=== PATIENT | male | born 1945 | race Caucasian/White ===

== ENCOUNTER → 2016-09-11 | Outpatient (CLI) | payer OTHER ==
[~2016-09-11] VITALS: Ht 170.2 cm; Wt 82.6 kg
[~2016-09-11] MED LIST: AMARYL2 MG PO; COZAAR 50 MG TA50 M2 PO; JARDIANCE10 MG PO; LEVOTHYROXIN0.125 M1 PO; LOPRESSOR25 PO; METFORMIN HCL500 MG PO; PLAVIX 75 MG TA75 M1 PO; PRILOSEC 20 MG20 MG PO; UNICOMPLEX M TA1 TA1 PO; VITAMIN B COMP1 EAC7 PO; VYTORIN 10-801 EACH PO
--- NOTE | ~2016-09-11 | EKG ---
[place] [address] [facility] [address] [place] [address] ELECTROCARDIOGRAM REPORT Name: LEMONSMARYCHUY WAYNE Room #: REG CLI OlvinDiogenes#: [id number] Admission: 09/11/16 Attend Phys: Frank Leon MD, FA Discharge: Date of : 43 Report #: [id number] THIS REPORT FOR: //name// [facility] Test Date: 2016-09-11 Test Time: 07:02:43 Pat Name: MARYCHUY LEMONS Department: Room: Gender: Medical Doctor Nuclear Medicine: Jacinto QUIGLEY : 1945 Requested By: Frank Leon Order Number: [id number] MD: Piotr Hau Measurements Intervals [place] Rate: 65 P: 60 NM: 205 QRS: 27 QRSD: 98 T: 17 QT: 414 QTc: 431 Interpretive Statements Sinus rhythm Abnormal R-wave progression, early transition No previous ECG available for comparison Electronically Signed On 09-11-2016 8:59:08 CDT by Piotr Hua [email or web address] <ELECTRONICALLY SIGNED> By: Piotr Hua MD, [facility] 09/11/16 0859 0702 1 Piotr Hua MD, FACC /EPI
--- NOTE | ~2016-09-11 | CATHLAB ---
[facility] [address] [place] [address] INVASIVE PROCEDURE REPORT Name: SERGIO LEMONSEZEQUIEL WAYNE Room #: REG DANELLE Escoto#: [id number] Admission: 09/11/16 Attend Phys: Frank Leon MD Discharge: Date of : 43 Date of Service: 09/11/16 1417 Report #: [id number] THIS REPORT FOR: //name// APPROVED REPORT Patient Details Patient Status: Out-Patient Room #: The patient is a 71 year-old male Procedures Performed left heart cath Indication Atypical chest pain Risk Factors Coronary Artery Disease Previous Procedures/Diagnoses Previous PCI Admission/Lab Medications/Medications given during procedure Aspirin, Beta Arthur Procedure Narrative The patient was brought electively to the Cardiac Catheterization Laboratory and was prepped and draped in a sterile manner. The right wrist was infiltrated with 1% Lidocaine subcutaneous anesthesia. A 6 pitcairn islander sheath was inserted into the right radial artery. Coronary angiography was performed using coronary diagnostic catheters. The right coronary system was accessed and visualized with a Diagnostic catheter. The left coronary system was accessed and visualized with a Diagnostic catheter. The left ventricle was accessed and visualized with a Diagnostic catheter. Left ventricular/Aortic Valve gradient assessed via catheter pullback. Left ventriculogram was performed in BA[place]A projection. The patient tolerated the procedure well and there were no complications associated with the procedure. There was no hematoma. Intraoperative Conscious Sedation Sedation start time: 8:03 Case end Time: 8:49 Fentanyl 50 mcg Versed 1 mg Coronary Angiography [facility] [address] [place] [address] INVASIVE PROCEDURE REPORT Name: MARYCHUY LEMONS [place] Room #: REG Olvin.#: [id number] Admission: 09/11/16 Attend Phys: Frank Leon MD Discharge: Date of : 43 Date of Service: 09/11/16 1417 Report #: [id number] The patient's coronary anatomy is right dominant. [place] Artery Percent Stenosis Left Main: 30 % Prox LAD: % Mid/Distal LAD: 60 % Circumflex: 0 % RCA: 100 % Ramus: % Diagnostic Findings The left main artery had a 30% ostial stenosis as well as a distal 30% stenosis. The left anterior descending artery was noted to give off a medium-sized first diagonal branch. There is then a long metal stent in the mid left anterior descending artery that had a proximal 60% restenosis as well as a distal 50% restenosis. CIrcumflex artery was a nondominant vessel and gave off a large marginal branch had no significant atherosclerosis. The right coronary artery was the dominant vessel. There is a metal stent in the proximal right coronary had no significant restenosis. However the right coronary artery appeared chronically occluded at the acute margin of the vessel. There was normal left ventricular chamber size. There is severe hypokinesis noted at the base of the inferior wall with an estimated ejection fraction of 45%. Left Ventriculography Ejection Fraction was 45% based off patient's . There is no mitral insufficiency. Hemodynamics The aortic pressure is 116-56-87 mmHg with a mean of mmHg. The left ventricular pressure is 122-10-19 mmHg with a mean of mmHg. The left ventricular end diastolic pressure is 25 mmHg. There was no gradient across the aortic valve upon pullback. Pullback from the left ventricle to the aorta revealed no gradient across the aortic valve. Conclusion #1 normal left ventricular chamber size with severe hypokinesis noted the basal inferior wall and estimated ejection fraction 45%. #2 coronary artery disease manifested by a long metal stent in the mid left anterior descending artery had a proximal 60% restenosis as well as a distal 50% restenosis. #3 there is a stent in the proximal right coronary artery had no significant restenosis. However the right coronary artery appeared be chronically occluded at the acute margin of the vessel. [facility] [address] [place] [address] INVASIVE PROCEDURE REPORT Name: MARYCHUY LEMONS Room #: REG CL OlvinDiogenes#: [id number] Admission: 09/11/16 Attend Phys: Frank Leon MD Discharge: Date of : 43 Date of Service: 09/11/161416 Report #: [id number] Recommendations Aggressive Medical Therapy <ELECTRONICALLY SIGNED> By: Frank Leon MD, [facility] 09/11/161416 16 16 Frank Leon MD, FACC /INF
[2016-09-11 07:18] LABS: HEMATOCRIT 40.4 % (42.0-52.0); HEMOGLOBIN 13.7 gm/dL (14.0-18.0); MCH 29.8 pg (26.0-34.0); MCV 87.6 fL (80.0-100.0); RBC 4.6 mil/uL (4.50-6.00); RDW 13.8 % (10.5-14.5); WBC 9.3 thou/uL (4.0-11.0)
[2016-09-11 07:19] VITALS: BP 125/78
[2016-09-11 07:30] LABS: ANION GAP 9 mmol/L (7-16); BUN 25 mg/dL (7-18); CALCIUM 9.5 mg/dL (8.5-10.1); CHLORIDE 103 mmol/L (98-107); CO2 24 mmol/L (21-32); CREATININE 1.4 mg/dL (0.7-1.3); GLUCOSE 150 mg/dL (74-106); POTASSIUM 4.2 mmol/L (3.5-5.1); SODIUM 136 mmol/L (136-145)
[2016-09-11 07:35] LABS: CHOLESTEROL 127 mg/dL (<200); HDL CHOLESTEROL 40 mg/dL (>40); LDL CHOLESTEROL 72 mg/dL (<100); TC:HDL 3.2 Ratio (Not establshd); TRIGLYCERIDE 77 mg/dL (<150); VLDL 15 mg/dL (<40)
== END | disposition home or self-care (01) ==
LOC: CATH 06:32
PROVIDERS: Internal Medicine Cardiovascular Disease
DX: I25.10 Atherosclerotic heart disease of native coronary artery without angina pectoris (principal); I10 Essential (primary) hypertension; E78.5 Hyperlipidemia, unspecified; I25.2 Old myocardial infarction; I50.9 Heart failure, unspecified; E11.9 Type 2 diabetes mellitus without complications; Z95.5 Presence of coronary angioplasty implant and graft; Z98.890 Other specified postprocedural states; Z87.891 Personal history of nicotine dependence; Z82.49 Family history of ischemic heart disease and other diseases of the circulatory system

== ENCOUNTER → 2016-10-12 | Outpatient (CLI) | payer OTHER | LOC: RAD 08:36 | DX: M47.896 Other spondylosis, lumbar region (principal); M41.86 Other forms of scoliosis, lumbar region ==

== ENCOUNTER → 2019-07-21 | Outpatient (CLI) | payer OTHER ==
--- NOTE | 2019-07-23 13:01 | SLE ---
[facility] [place] [address] POLYSOMNOGRAPHY STUDY Name: MARYCHUY LEMONS Room #: REG CHANTAL BahDiogenes#: [id number] Admission: 07/21/19 Attend Phys: Colette Harkins MD Discharge: Date of : 43 Report #: [id number] THIS REPORT FOR: //name// CC: Colette Castillo DATE OF SERVICE: 07/21/2019 SLEEP STUDY REFERRING PHYSICIAN: Dr. Teddy Castillo. The patient is 73 years old who weighs 180 pounds with a BMI of 27.4. The patient's Buffalo score was 13. The patient underwent diagnostic sleep study performed at [facility]. During the night study, the patient spent 432 minutes in bed and slept for 400 minutes with a sleep efficiency of 93%. Sleep latency was 8.3 minutes with a REM latency of 56.5 minutes. Sleep architecture showed increased stage 1 and stage 2 sleep, absent slow wave and normal REM sleep. During the night study, the patient had 35 obstructive apneas, no mixed apneas and 5 central apneas and 45 hypopneas. The patient's AHI was 12 per hour with a REM AHI of 0.8 per hour and a supine AHI of 37 per hour. EKG monitoring revealed an average heart rate of 75 beats per minute. No sustained arrhythmias observed. PLMS were seen at an index of 35 per hour and 3 per hour caused EEG arousals. Nocturnal oximetry study revealed an average oxygen saturation of 94% with the lowest of 87%. Less than 1 minute were spent in oxygen saturation of less than 89%. Due to low AHI, the patient did not meet the split night criteria for CPAP initiation. IMPRESSION: 1. Mild obstructive sleep apnea with worsening during supine sleep. Total AHI of 12 per hour with a supine AHI of 37 per hour. 2. No clinically significant nocturnal hypoxia. 3. Moderate periodic limb movements. RECOMMENDATIONS: 1. The patient is clinically symptomatic with an Buffalo score of 13. The patient would benefit from treatment of sleep apnea with either CPAP versus oral [facility] [address] [place] [address] POLYSOMNOGRAPHY STUDY Name: MARYCHUY LEMONS [place] Room #: REG [facility] Olvin.#: [id number] Admission: 07/21/19 Attend Phys: Colette Harkins MD Discharge: Date of : 43 Report #: [id number] appliance. 2. Once the patient is optimally treated, then follow up in 4-6 weeks to assess compliance with treatment and to document clinical improvement. 3. Avoid supine sleep. 4. Cautioned regarding driving until the patient's hypersomnia is resolved with above recommendations. 5. Weight loss to the ideal body weight is recommended. 6. Avoid CREW LEADER/CONTROL ROOM OPERATOR depressants. <ELECTRONICALLY SIGNED> By: Leonardo Saenz MD 07/23/19 1301 1920 26 Leonardo Saenz MD /nt
== END ==
LOC: SLEEPLAB 12:55
DX: G47.33 Obstructive sleep apnea (adult) (pediatric) (principal); R25.8 Other abnormal involuntary movements

== ENCOUNTER → 2019-10-19 | Outpatient (CLI) | payer OTHER | LOC: CAT 10:49 | PROVIDERS: ATTEND Internal Medicine | DX: Z12.2 Encounter for screening for malignant neoplasm of respiratory organs (principal); I25.10 Atherosclerotic heart disease of native coronary artery without angina pectoris; J84.10 Pulmonary fibrosis, unspecified; Z87.891 Personal history of nicotine dependence ==

== ENCOUNTER 2020-01-20 19:04 | Emergency (ER) | payer OTHER ==
[~2020-01-20] VITALS: Ht 172.7 cm; Wt 81.7 kg
[2020-01-20 20:12] LABS: BASOPHILS 0.8 % (0.0-2.0); EOSINOPHILS 2.4 % (0.0-3.0); HEMATOCRIT 43.5 % (42.0-52.0); HEMOGLOBIN 14.7 gm/dL (14.0-18.0); LYMPHOCYTES 27.1 % (24.0-44.0); MCH 30.3 pg (26.0-34.0); MCHC 33.9 g/dL (28.0-37.0); MCV 89.6 fL (80.0-100.0); MONOCYTES 10.7 % (1.0-8.0); PLATELET COUNT 288 thou/uL (150-400); RBC 4.86 mil/uL (4.50-6.00); RDW 14.3 % (10.5-14.5); WBC 6.8 thou/uL (4.0-11.0)
[2020-01-20 20:17] LABS: ANION GAP 15 mmol/L (7-16); BUN 26 mg/dL (7-18); CALCIUM 9.7 mg/dL (8.5-10.1); CHLORIDE 98 mmol/L (98-107); CO2 22 mmol/L (21-32); CREATININE 1.6 mg/dL (0.7-1.3); GLUCOSE 248 mg/dL (74-106); POTASSIUM 4.6 mmol/L (3.5-5.1); SODIUM 135 mmol/L (136-145)
[2020-01-20] MEDS ORDERED: B 12 PO (20:18)
[2020-01-20] MEDS ORDERED: LANTUS SUBQ (20:19)
[2020-01-20] MEDS ORDERED: TRULICITY SUBQ (20:20)
[2020-01-20 20:27] LABS: ALBUMIN 3.9 g/dL (3.4-5.0); SGOT 21 U/L (15-37); SGPT 43 U/L (30-65); TOTAL BILIRUBIN 0.3 mg/dL (0.2-1.0); TOTAL PROTEIN 7.5 g/dL (6.4-8.2); TROPONIN-I <0.06 ng/mL (<0.06)
[2020-01-20] MEDS ORDERED: PROAIR HFA8.5 GM INH ×2 (21:18→21:19)
[2020-01-20] MEDS ORDERED: ZPAK PO ×2 (21:18→21:19)
[2020-01-20 21:25] VITALS: BP 121/67
--- NOTE | 2020-01-21 07:55 | EKG ---
[facility] [place] [address] [place] [address] ELECTROCARDIOGRAM REPORT Name: SERGIO LEMONSBUR BLOMKEST Room #: DEP [facility].#: [id number] Admission: 01/20/20 Attend Phys: Discharge: 01/20/20 Date of : 43 Report #: [id number] THIS REPORT FOR: cc: Teddy Castillo MD, Rene P. MD Santiago, Patrick MD [facility] ~ THIS REPORT FOR: //name// [facility] ED Test Date: 2020-01-20 Test Time: 19:11:46 Pat Name: MARYCHUY LEMONS Department: Room: Gender: Race Relations Adviser: [facility] : 1945 Requested By: Tae Rader Order Number: [id number] MD: Tre Gay Measurements Intervals [place] Rate: 97 P: 73 NE: 191 QRS: 41 QRSD: 98 T: 50 QT: 338 QTc: 430 Interpretive Statements Sinus rhythm Inferior infarct, old Compared to ECG 09/11/2016 07:02:43 Myocardial infarct finding now present Electronically Signed On 01-21-2020 7:55:07 CDT by Tre Gay [email or web address] <ELECTRONICALLY SIGNED> By: Tre Gay MD, FACC 01/21/20 0755 10 10 Tre Gay MD, FAC /EPI
== END 2020-01-20 21:38 | disposition home or self-care (01) ==
LOC: ER 19:04
PROVIDERS: Physician Assistant
DX: U07.1 COVID-19 (principal); R53.83 Other fatigue; R05 Cough; I10 Essential (primary) hypertension; E11.9 Type 2 diabetes mellitus without complications; I25.10 Atherosclerotic heart disease of native coronary artery without angina pectoris; Z79.4 Long term (current) use of insulin; Z79.01 Long term (current) use of anticoagulants; Z79.899 Other long term (current) drug therapy

== ENCOUNTER 2020-01-23 16:37 | Inpatient (IN) | payer OTHER ==
[~2020-01-23] VITALS: Ht 180.3 cm; Wt 81.6 kg
[~2020-01-23 16:37] MED LIST changes: +B 12 PO; +LANTUS SUBQ; +PROAIR HFA8.5 GM INH; +TRULICITY SUBQ; +ZPAK PO
[2020-01-23 16:38] VITALS: BP 137/64
[2020-01-23 17:29] LABS: HEMATOCRIT 40.2 % (42.0-52.0); HEMOGLOBIN 13.5 gm/dL (14.0-18.0); MCH 29.9 pg (26.0-34.0); MCHC 33.6 g/dL (28.0-37.0); MCV 89.1 fL (80.0-100.0); PLATELET COUNT 257 thou/uL (150-400); RBC 4.52 mil/uL (4.50-6.00); RDW 13.9 % (10.5-14.5); WBC 4.9 thou/uL (4.0-11.0)
[2020-01-23 17:35] LABS: ANION GAP 14 mmol/L (7-16); BUN 20 mg/dL (7-18); CALCIUM 8.7 mg/dL (8.5-10.1); CHLORIDE 99 mmol/L (98-107); CO2 23 mmol/L (21-32); CREATININE 1.6 mg/dL (0.7-1.3); GLUCOSE 320 mg/dL (74-106); POTASSIUM 4.7 mmol/L (3.5-5.1); SODIUM 136 mmol/L (136-145)
[2020-01-23 17:45] LABS: ALBUMIN 3.7 g/dL (3.4-5.0); DIRECT BILIRUBIN 0.1 mg/dL (<0.1-0.2); SGOT 21 U/L (15-37); SGPT 30 U/L (30-65); TOTAL BILIRUBIN 0.3 mg/dL (0.2-1.0); TOTAL PROTEIN 7.4 g/dL (6.4-8.2); TROPONIN-I <0.06 ng/mL (<0.06)
[2020-01-23 18:13] LABS: ABSOLUTE NEUTROPHILS 3.4 thou/uL (1.4-8.2); ATYPICAL LYMPHS 3 %
--- NOTE | 2020-01-23 23:02 | EKG ---
[facility] [address] [place] [facility] [place] [address] ELECTROCARDIOGRAM REPORT Name: MARYCHUY LEMONS [place] Room #: 170-6 ADM IN M.R.#: [id number] Admission: 01/23/20 Attend Phys: Elina Wilder MD Discharge: Date of : 43 Report #: [id number] THIS REPORT FOR: cc: Teddy Castillo MD, Rene P. MD Lundgren,Piotr De Leon MD [facility] ~ THIS REPORT FOR: //name// [facility] ED Test Date: 2020-01-23 Test Time: 17:12:15 Pat Name: MARYCHUY LEMONS Department: Room: 170 Gender: M Fleet Manager: PABLO : 1945 Requested By: Jas Willard Order Number: [id number] MD: Piotr Hua Measurements Intervals [place] Rate: 116 P: 45 NC: 185 QRS: 17 QRSD: 95 T: 15 QT: 307 QTc: 427 Interpretive Statements Sinus tachycardia Inferior infarct, old Compared to ECG 01/20/2020 19:11:46 No significant change was found Electronically Signed On 01-23-2020 23:02:01 CDT by Piotr Hua [email or web address] <ELECTRONICALLY SIGNED> By: Piotr Hua MD, FACC 01/23/20 2302 11 11 Piotr Hua MD, [facility] /EPI
[2020-01-23 23:21] VITALS: BP 136/57
[2020-01-23 23:38] VITALS: BP 128/79
[2020-01-24 00:15] VITALS: BP 108/55
[2020-01-24 00:58] LABS: BE(vivo) -6.2 mmol/L (-2 to +3); PCO2 31.7 mmHg (35.0-45.0); PO2 78.2 mmHg (80.0-100.0); pH 7.372 (7.360-7.450); sO2 95.4 % (92.0-98.0)
[2020-01-24 04:29] LABS: ABSOLUTE NEUTROPHILS 3.5 thou/uL (1.4-8.2); BASOPHILS 0.3 % (0.0-2.0); HEMATOCRIT 39.4 % (42.0-52.0); HEMOGLOBIN 13.1 gm/dL (14.0-18.0); LYMPHOCYTES 13.4 % (24.0-44.0); MCH 29.8 pg (26.0-34.0); MCHC 33.3 g/dL (28.0-37.0); MCV 89.4 fL (80.0-100.0); MONOCYTES 2.7 % (1.0-8.0); PLATELET COUNT 239 thou/uL (150-400); POLYS 83.6 % (36.0-66.0); WBC 4.2 thou/uL (4.0-11.0)
[2020-01-24 04:34] LABS: ALBUMIN 3.4 g/dL (3.4-5.0); ANION GAP 14 mmol/L (7-16); BUN 25 mg/dL (7-18); CALCIUM 8.6 mg/dL (8.5-10.1); CHLORIDE 102 mmol/L (98-107); CO2 20 mmol/L (21-32); CREATININE 1.5 mg/dL (0.7-1.3); GLUCOSE 398 mg/dL (74-106); MAGNESIUM 2.1 mg/dL (1.8-2.4); PHOSPHORUS 2.8 mg/dL (2.5-4.9); POTASSIUM 5.4 mmol/L (3.5-5.1); SGOT 18 U/L (15-37); SGPT 36 U/L (30-65); SODIUM 136 mmol/L (136-145); TOTAL BILIRUBIN 0.3 mg/dL (0.2-1.0); TROPONIN-I <0.06 ng/mL (<0.06)
[2020-01-24 07:41] VITALS: BP 122/54
--- NOTE | 2020-01-24 07:50 | NUR ---
ADMIT PT ADMITTED TO ROOM 350 VIA ED FOR R/O COVID, R/O GIB. PT HAS A HX OF RETENTION AND VOIDED AND BLADDERSCANNED THAT REVEALED 402 CC'S LEFT IN BLADDER STRAIGHT CATH WITH RETURN OF 420 CC'S SPECIMEN SENT TO LAB ORDERED, IVF'S INITIATED IV ANTIBIOTICS ADMINISTERED ORDERED. PT TAKEN TO CAT SCAN AND ALL LABS DRAWN ORDERED. PT UP WITH SBA [facility] [place]. PT CONCERNED ABOUT S.O WHO IS IN ROOM 356 TOLD HE CAN'T WALK AROUND THE UNIT.
[2020-01-24 11:10] VITALS: BP 116/59
[2020-01-24 16:39] VITALS: BP 116/50
--- NOTE | 2020-01-24 18:36 | NUR ---
PATIENT HAS RESTED IN ROOM THROUGH THE DAY. RESPIRATIONS ARE EVEN NON LABORED. PLEASAN WITH CARES. STARTED ON REMDESIVIR TODAY. UP AD [place] IN ROOM. WILL LIKE TO VISIT GF IN ANOTHER ROOM BUT UNDESTANDS HE CANNOT LEAVE HIS ROOM TO ROAM ABOUT. WILL CONT WITH PLAN OF CARE.
[2020-01-24 19:36] VITALS: BP 119/54
--- NOTE | 2020-01-24 19:47 | NUR ---
accucheck meter read over 500 stat bmp entered per protocol.
[2020-01-24 20:52] LABS: CALCIUM 8.6 mg/dL (8.5-10.1); CREATININE 1.9 mg/dL (0.7-1.3)
[2020-01-24 20:54] LABS: POTASSIUM 3.9 mmol/L (3.5-5.1)
[2020-01-24 21:43] LABS: URINE BILIRUBIN NEGATIVE (Negative); URINE BLOOD NEGATIVE (Negative); URINE CLARITY CLEAR; URINE COLOR YELLOW; URINE GLUCOSE-RANDOM* 3+ (Negative); URINE KETONES 1+ (Negative); URINE LEUKOCYTES-REFLEX NEGATIVE (Negative); URINE NITRITE-REFLEX NEGATIVE (Negative); URINE PROTEIN (DIPSTICK) NEGATIVE (Negative); URINE UROBILINOGEN 0.2 E.U./dl (0.2-1.0)
[2020-01-25 00:06] LABS: T4 (THYROXINE) 9.2 ug/dL (4.5-12.0)
[2020-01-25 02:00] VITALS: BP 108/47
[2020-01-25 04:48] VITALS: BP 119/46
[2020-01-25 06:27] LABS: ABSOLUTE NEUTROPHILS 11.1 thou/uL (1.4-8.2); BASOPHILS 0.1 % (0.0-2.0); HEMATOCRIT 38.7 % (42.0-52.0); HEMOGLOBIN 12.7 gm/dL (14.0-18.0); LYMPHOCYTES 5.6 % (24.0-44.0); MCHC 32.8 g/dL (28.0-37.0); MCV 88.4 fL (80.0-100.0); MONOCYTES 6.6 % (1.0-8.0); PLATELET COUNT 256 thou/uL (150-400); POLYS 87.7 % (36.0-66.0); RBC 4.38 mil/uL (4.50-6.00); RDW 13.7 % (10.5-14.5); WBC 12.6 thou/uL (4.0-11.0)
[2020-01-25 06:28] LABS: PROTIME 10.3 Seconds (9.3-11.4)
[2020-01-25 06:48] LABS: ALBUMIN 3.2 g/dL (3.4-5.0); ANION GAP 14 mmol/L (7-16); BUN 29 mg/dL (7-18); CHLORIDE 106 mmol/L (98-107); CO2 22 mmol/L (21-32); CREATININE 1.1 mg/dL (0.7-1.3); DIRECT BILIRUBIN < 0.1 mg/dL (<0.1-0.2); GLUCOSE 53 mg/dL (74-106); POTASSIUM 3.8 mmol/L (3.5-5.1); SGOT 19 U/L (15-37); SGPT 30 U/L (30-65); TOTAL BILIRUBIN 0.1 mg/dL (0.2-1.0); TOTAL PROTEIN 6.7 g/dL (6.4-8.2)
[2020-01-25 06:51] LABS: SODIUM 142 mmol/L (136-145)
--- NOTE | 2020-01-25 10:22 | NUR ---
RD consult received. Pt admit with sepsis, COVID +, TEE. Had been fatigued, SOA and decreased oral intake prior to admit. On IVF. Hx diabetes and BG aggravated with steroid up over 600. Has insulin orders. Very [place], unable to interview over phone and pt in isolation precautions. Will start with adding glucerna shake 1x day until intake trends are established. Wts are stable. Low nutrition risk
[2020-01-25 11:36] VITALS: BP 124/58
--- NOTE | 2020-01-25 13:29 | NUR ---
PT CARE ASSUMED AT 0700, PT ALERT AND ORIENTED X4, DENIES CHEST PAIN, NAUSEA AND VOMITTING. PT IS ON 2L OXYGEN, NO SIGNS OF DISTRESS NOTED. PT IS UP TO BATHROOM WITH ONE ASSIST. PROGRESSING TOWARDS CARE. DENIES ANY NEEDS WOODROW. CALL LIGHT AND TABLE WITHIN REACH. BED AT LOWEST LEVEL WITH ALARM.
[2020-01-25 14:47] VITALS: BP 138/70
--- NOTE | 2020-01-25 16:36 | NUR ---
INITIAL ASSESSMENT: SW reviewed chart and spoke with nursing and attending physician. Pt was admitted from home due to COVID-19. Pt is in Enhanced Isolation. Pt is afebrile and on 2L of O2. Pt is on IV abx and IV steroids. Pt has started course of Remdesivir. SW spoke with pt via phone. Introduced role of SW. Pt is alert/orientated x 4. Pt lives at home with his s/o, Sandra, who was discharged home yesterday from [facility] due to COVID-19. Prior to admission, pt was indpendent with ADLs. No use of DME. Pt's PCP is Dr. Castillo. Pt states his plan is to return home when medically stable. SW is following to assist as needed with discharge planning.
[2020-01-25 20:02] VITALS: BP 141/75
[2020-01-26 03:57] VITALS: BP 122/62
[2020-01-26 06:34] LABS: CREATININE 1.1 mg/dL (0.7-1.3); DIRECT BILIRUBIN < 0.1 mg/dL (<0.1-0.2); SGOT 33 U/L (15-37); SGPT 45 U/L (30-65); TOTAL BILIRUBIN 0.3 mg/dL (0.2-1.0); TOTAL PROTEIN 6.3 g/dL (6.4-8.2)
[2020-01-26 07:16] VITALS: BP 142/69
--- NOTE | 2020-01-26 07:39 | NUR ---
Pt. looks flushed and tachycardic at beginning of shift. Temp of 100 orally. RN CONCURRENT REVIEW notified ,tyl ordered and given to pt. Temp of 98.4 upon recheck. Tolerating room air well with O2 sat in the mid to upper 90's. He does get short of breath with exertion. He requested bed alarm off stating sometimes he just wants to sit up on the bed and he's steady on his feet. He slept some. Voided per bathroom and eventually used urinal. Denies any other concern at this time.
[2020-01-26 11:09] VITALS: BP 143/70
--- NOTE | 2020-01-26 12:59 | NUR ---
PT CARE ASSUMED AT 0700, PT ALERT AND ORIENTED X4, DENIES ANY PAIN, NAUSEA AND VOMITTING. PT IS ON ROOM AIR WOODROW AND IS TOLERATING IT WELL. NO SIGNS OF DISTRESS NOTED. STANDY BY TO THE BATHRROM. PROGRESSING TOWARDS CARE. WILL CONTINUE TO MONITOR.
[2020-01-26 15:37] VITALS: BP 138/66
[2020-01-26 19:12] VITALS: BP 151/73
--- NOTE | 2020-01-26 22:38 | NUR ---
PT INDEPENDENTLY AMBULATING IN ROOM. STEADY GAIT. NOTED SOA WITH TALKING AND AMBULATION. IVF INTACT. PT HAD HS SNACK. WHEEZES NOTED ON RUL RLL. ABDOMEN DISTENDED, BS POSITIVE.
[2020-01-27 06:46] LABS: ALBUMIN 2.7 g/dL (3.4-5.0); CREATININE 1.2 mg/dL (0.7-1.3); DIRECT BILIRUBIN 0.1 mg/dL (<0.1-0.2); TOTAL BILIRUBIN 0.3 mg/dL (0.2-1.0); TOTAL PROTEIN 5.9 g/dL (6.4-8.2)
[2020-01-27 08:30] VITALS: BP 130/62
[2020-01-27 11:03] VITALS: BP 113/60
--- NOTE | 2020-01-27 14:27 | NUR ---
SW reviewed chart ans spoke with nursing and attending physician. Pt remains in Enhanced Isolation due to COVID-19. Pt is afebrile and not requiring O2. Pt is on IV abx and IV steroids. Pt is completing course of Remdesivir. Plan is for pt to discharge home when medically stable. LORIE is following to assist as needed with discharge planning.
[2020-01-27 15:43] VITALS: BP 120/55
--- NOTE | 2020-01-27 16:35 | NUR ---
PT CARE ASSUMED AT 0700, ALERT AND OREINTED X4, DENIES ANY PAIN, NAUSEA AND VOMITTING. PT IS ON ROOM AIR, NO SIGNS OF DISTRESS. PT UP TO BATHROOM. TOOK A SHOWER. DENIES ANY NEEDS. PROGRESSING TOWARDS POC.
[2020-01-27 19:47] VITALS: BP 116/56
[2020-01-28 03:44] VITALS: BP 142/67
[2020-01-28 06:09] LABS: ALBUMIN 2.8 g/dL (3.4-5.0); DIRECT BILIRUBIN < 0.1 mg/dL (<0.1-0.2); SGOT 29 U/L (15-37); SGPT 73 U/L (30-65); TOTAL BILIRUBIN 0.3 mg/dL (0.2-1.0); TOTAL PROTEIN 6.1 g/dL (6.4-8.2)
[2020-01-28 07:12] VITALS: BP 123/68
[2020-01-28] MEDS ORDERED: CEFUROXIME500 MG PO (09:19)
[2020-01-28] MEDS ORDERED: PREDNISONE 20 M20 M1 PO (09:20)
[2020-01-28 10:33] VITALS: BP 123/68
--- NOTE | 2020-01-28 12:15 | NUR ---
ASSUMED PATIENT CARE AT 0700. A/O X4. NO SOB. DENESI PAIN. PROGRESSING TOWARDS POC GOALS. DC TO HOME NOW.
--- NOTE | 2020-01-28 14:48 | HC ---
[facility] [place] [address] [place] [address] CONSULTATION Name: MARYCHUY LEMONS [place] Room #: [facility] IN M.R.#: [id number] Admission: 01/23/20 Attend Phys: Elina Wilder MD Discharge: 01/28/20 Date of : 43 Report #: [id number] THIS REPORT FOR: cc: Teddy Castillo MD, Rene P. MD Barry, Joseph W. MD ~ REASON FOR EVALUATION: COVID-19 infection. HISTORY OF SUBJECTIVE: Chart reviewed, patient examined. This is a 74-year-old gentleman with diabetes mellitus type 2 complicated by vasculopathy, has known coronary artery disease, who presented with complaints of progressive dyspnea, discovered to have COVID positivity on 01/20/2020, had felt to be early sepsis, kidney injury, subsequently admitted. It is notable that has improved. He has been on corticosteroids as well as ceftriaxone, azithromycin combination. Imaging of the chest showed no acute infiltrate. He is currently on room air. He denies any significant gastrointestinal-related complaints either. ALLERGIES: None known. MEDICATIONS: Include cyanocobalamin, multivitamin, atorvastatin, clopidogrel, insulin lispro, levothyroxine, ipratropium and albuterol inhaler, metoprolol, tamsulosin, methylprednisolone, famotidine, ceftriaxone and azithromycin. PAST MEDICAL HISTORY: Diabetes mellitus, has known vasculopathy, coronary artery disease, previous stenting, hypertension, hyperlipidemia. SOCIAL HISTORY: Former smoker. No ethanol. No illicit drug use. FAMILY HISTORY: Noncontributory. REVIEW OF SYSTEMS: Otherwise, unremarkable 10-point review. PHYSICAL EXAMINATION: GENERAL: Pleasant, alert, cooperative, appears relatively comfortable, mild distress, appears reasonably nourished. VITAL SIGNS: Temperature max 100.3, more recently 96, pulse 92, respirations 16, blood pressure 122/54. SKIN: Warm, dry, no rashes. HEENT: Otherwise, unremarkable. NECK: Supple. LUNGS: Diminished breath sounds, otherwise clear. HEART: Regular. Borderline tachycardic. I do not appreciate a murmur. ABDOMEN: Soft, mildly distended, nontender. RECTAL: Deferred. [facility] [address] [address] CONSULTATION Name: MARYCHUY LEMONS [place] Room #: 350-P [facility] IN M.R.#: [id number] Admission: 01/23/20 Attend Phys: Elina Wilder MD Discharge: 01/28/20 Date of : 43 Report #: [id number] LABORATORY DATA: Coronavirus testing was positive as noted above. Chest x-ray officially describes no acute process. Electrolytes: Sodium 136, potassium 4.7, chloride 99, bicarbonate is 23, anion gap of 14, BUN and creatinine 20 and 1.6. AST of 21, ALT of 30. Albumin 3.7, total protein 7.4. Lactic acid initially 2.8, more recently is 1.2. D-dimer 0.38. CBC: White count 4.9, H and H 13.5 and 40.2, platelets of 257 to have 3% atypical lymphs with 14% lymphocytes, which is category of lymphocytopenia. Procalcitonin less than 0.05. Followup creatinine was 1.[address] of the chest showed patchy ground glass infiltrates and periphery of the right upper lobe, basal aspect of the left lower lobe compatible with multifocal pneumonia. No suspicious lung nodules or masses. ASSESSMENT: COVID-19 infection with this gentleman with preexisting conditions had some minor what appears to be renal failure and perhaps is improving. At this point, he is not overtly toxic. He is on no supplemental oxygen. Imaging is unremarkable with CT. It is reasonable to continue current therapy as prescribed. We will hold off on additional antiviral therapy. Continue to monitor expectantly. <ELECTRONICALLY SIGNED> By: Levi Prabhakar MD 01/28/20 1448 1040 1235 Levi Prabhakar MD /nt
== END 2020-01-28 12:07 | disposition home or self-care (01) | DRG 871 ==
LOC: ER 16:37 → 3W 18:31 → EROBS 18:31 → 3W 23:51
PROVIDERS: Emergency Medicine; ADMIT Internal Medicine; ATTEND Internal Medicine
PROC: XW033E5 Introduction of Remdesivir Anti-infective into Peripheral Vein, Percutaneous Approach, New Technology Group 5 (ICD-10-PCS; principal; 2020-01-24)
DX: A41.89 Other specified sepsis (principal); J12.89 Other viral pneumonia; U07.1 COVID-19; J96.01 Acute respiratory failure with hypoxia; N17.9 Acute kidney failure, unspecified; J44.1 Chronic obstructive pulmonary disease with (acute) exacerbation; J44.0 Chronic obstructive pulmonary disease with (acute) lower respiratory infection; I25.10 Atherosclerotic heart disease of native coronary artery without angina pectoris; E11.9 Type 2 diabetes mellitus without complications; I10 Essential (primary) hypertension; E03.9 Hypothyroidism, unspecified; E78.5 Hyperlipidemia, unspecified; Z90.49 Acquired absence of other specified parts of digestive tract; Z87.891 Personal history of nicotine dependence; Z95.5 Presence of coronary angioplasty implant and graft; Z83.3 Family history of diabetes mellitus; Z80.1 Family history of malignant neoplasm of trachea, bronchus and lung; Z83.6 Family history of other diseases of the respiratory system; Z98.49 Cataract extraction status, unspecified eye; Z79.899 Other long term (current) drug therapy
CPT/HCPCS: 10879

== ENCOUNTER → 2020-02-09 | Outpatient (CLI) | payer OTHER ==
[~2020-02-09] MED LIST changes: +CEFUROXIME500 MG PO; +PREDNISONE 20 M20 M1 PO
== END ==
LOC: LAB 09:18
PROVIDERS: ATTEND Family Medicine
DX: U07.1 COVID-19 (principal)

== ENCOUNTER → 2020-02-17 | Outpatient (CLI) | payer OTHER | LOC: LAB 09:02 | PROVIDERS: ATTEND Family Medicine | DX: U07.1 COVID-19 (principal) ==

== ENCOUNTER 2020-04-05 09:23 | Emergency (ER) | payer OTHER ==
[~2020-04-05] VITALS: Ht 172.7 cm; Wt 82.1 kg
[2020-04-05 09:28] VITALS: BP 137/72
[2020-04-05] MEDS ORDERED: JARDIANCE25 MG PO (09:36)
[2020-04-05 10:03] LABS: ABSOLUTE NEUTROPHILS 6.7 thou/uL (1.4-8.2); BASOPHILS 0.6 % (0.0-2.0); EOSINOPHILS 0.6 % (0.0-3.0); HEMATOCRIT 38.6 % (42.0-52.0); HEMOGLOBIN 12.9 gm/dL (14.0-18.0); LYMPHOCYTES 4.1 % (24.0-44.0); MCH 29.4 pg (26.0-34.0); MCHC 33.3 g/dL (28.0-37.0); MCV 88.4 fL (80.0-100.0); MONOCYTES 5.1 % (1.0-8.0); PLATELET COUNT 259 thou/uL (150-400); POLYS 89.6 % (36.0-66.0); RBC 4.37 mil/uL (4.50-6.00); RDW 13.7 % (10.5-14.5); WBC 7.5 thou/uL (4.0-11.0)
[2020-04-05 10:07] LABS: ANION GAP 10 mmol/L (7-16); BUN 17 mg/dL (7-18); CHLORIDE 103 mmol/L (98-107); CO2 22 mmol/L (21-32); CREATININE 1.3 mg/dL (0.7-1.3); GLUCOSE 183 mg/dL (74-106); POTASSIUM 4.1 mmol/L (3.5-5.1); SODIUM 135 mmol/L (136-145)
[2020-04-05 10:13] LABS: ALBUMIN 3.5 g/dL (3.4-5.0); DIRECT BILIRUBIN < 0.1 mg/dL (<0.1-0.2); SGOT 20 U/L (15-37); SGPT 29 U/L (16-63); TOTAL BILIRUBIN 0.4 mg/dL (0.2-1.0); TOTAL PROTEIN 6.5 g/dL (6.4-8.2)
[2020-04-05 10:35] LABS: URINE BILIRUBIN NEGATIVE (Negative); URINE BLOOD NEGATIVE (Negative); URINE CLARITY CLEAR; URINE COLOR YELLOW; URINE GLUCOSE-RANDOM* 3+ (Negative); URINE KETONES 1+ (Negative); URINE LEUKOCYTES-REFLEX NEGATIVE (Negative); URINE NITRITE-REFLEX NEGATIVE (Negative); URINE PROTEIN (DIPSTICK) NEGATIVE (Negative); URINE UROBILINOGEN 0.2 E.U./dl (0.2-1.0)
[2020-04-05 13:31] VITALS: BP 119/61
--- NOTE | 2020-04-05 14:22 | EKG ---
[address] [address] ELECTROCARDIOGRAM REPORT Name: MARYCHUY LEMONS [place] Room #: 170-12 ADM IN M.R.#: [id number] Admission: 04/05/20 Attend Phys: Johanne Allen MD Discharge: Date of : 43 Report #: [id number] [facility] ED Test Date: 2020-04-05 Test Time: 09:45:01 Pat Name: MARYCHUY LEMONS Department: Room: 170 12 Gender: M Cooper Apprentice: PABLO : 1945 Requested By: Caitie Byrne Order Number: [id number] : Tre Gay Measurements Intervals [place] Rate: 121 P: 50 CO: 175 QRS: 23 QRSD: 95 T: -1 QT: 307 QTc: 436 Interpretive Statements Sinus tachycardia Compared to ECG 01/23/2020 17:12:15 Myocardial infarct finding no longer present Electronically Signed On 04-05-2020 14:22:09 ELECTRONIC EQUIPMENT REPAIRMEN by Tre Gay [email or web address] <ELECTRONICALLY SIGNED> By: Tre Gay MD, [facility] 04/05/20 1422 0945 4 Tre Gay MD, FACC /EPI
--- NOTE | 2020-04-05 14:34 | NUR ---
Patient last discharged on home to complete home isolation from + COVID infection. Patient is A&O x 4 and live at home with his Sandra and the patients son. Sandra can be reached at [phone]. Patients PCP is Dr. Castillo. 74 year old male who presents with fever to the ED. Patient reports receiving the Covid vaccine yesterday on 04-04-20. He states had + Covid end of December. Pt states went to bed feeling fine then since awoke the AM of 04-04 with fever of 100.3 at home, feels generalized weakness, shaky. Patient has been admitted for Tachycardia, febrile with underlying history of COVID -19 pneumonia on 01-23-2020. COVID Antigen is negative in the ED and pending COVID PCR which was collected in the lab at 1224. Of note patient has been afebrile since 1159 on 04-05 x2 and 02 sats on RA have been at 96 or greater. CM will follow for discharge needs.
[2020-04-05 19:49] VITALS: BP 106/54
[2020-04-06 07:10] LABS: ABSOLUTE NEUTROPHILS 5.6 thou/uL (1.4-8.2); BASOPHILS 0.6 % (0.0-2.0); HEMATOCRIT 38.2 % (42.0-52.0); HEMOGLOBIN 12.6 gm/dL (14.0-18.0); LYMPHOCYTES 5.5 % (24.0-44.0); MCH 29.5 pg (26.0-34.0); MCV 89.5 fL (80.0-100.0); MONOCYTES 8.7 % (1.0-8.0); PLATELET COUNT 276 thou/uL (150-400); POLYS 85.2 % (36.0-66.0); RBC 4.26 mil/uL (4.50-6.00); RDW 14.4 % (10.5-14.5); WBC 6.6 thou/uL (4.0-11.0)
[2020-04-06 07:22] LABS: CALCIUM 9.5 mg/dL (8.5-10.1); CREATININE 1.3 mg/dL (0.7-1.3); MAGNESIUM 2.1 mg/dL (1.8-2.4); POTASSIUM 4.8 mmol/L (3.5-5.1)
[2020-04-06 07:27] VITALS: BP 126/56
[2020-04-06] MEDS ORDERED: LEVO-T100 MCG PO (12:50)
[2020-04-06 13:08] VITALS: BP 122/61
[2020-04-06 13:14] VITALS: BP 125/58
--- NOTE | 2020-04-06 13:16 | NUR ---
Spoke with who is in the room awaiting nurse to bring in discharge papers and will drive the patient home.
== END 2020-04-06 13:34 | disposition still patient (30) ==
LOC: ER 09:23 → EROBS 12:40
PROVIDERS: Emergency Medicine; Nurse Practitioner
DX: A41.9 Sepsis, unspecified organism (principal); R00.0 Tachycardia, unspecified; R30.0 Dysuria; E03.9 Hypothyroidism, unspecified; E11.9 Type 2 diabetes mellitus without complications; I10 Essential (primary) hypertension; E78.5 Hyperlipidemia, unspecified; I25.10 Atherosclerotic heart disease of native coronary artery without angina pectoris; Z20.822 Contact with and (suspected) exposure to COVID-19; Z95.5 Presence of coronary angioplasty implant and graft; Z90.49 Acquired absence of other specified parts of digestive tract; Z79.899 Other long term (current) drug therapy; Z79.4 Long term (current) use of insulin

== ENCOUNTER → 2021-02-15 | Outpatient (CLI) | payer OTHER ==
[~2021-02-15] MED LIST changes: +JARDIANCE25 MG PO; +LEVO-T100 MCG PO
== END | disposition home or self-care (01) ==
LOC: CAT 10:36
PROVIDERS: ATTEND Internal Medicine
DX: Z12.2 Encounter for screening for malignant neoplasm of respiratory organs (principal); J84.10 Pulmonary fibrosis, unspecified; I70.0 Atherosclerosis of aorta; M47.814 Spondylosis without myelopathy or radiculopathy, thoracic region; Z87.891 Personal history of nicotine dependence